=== PATIENT | male | born 1975 | race Caucasian/White ===

== ENCOUNTER → 2021-01-30 08:16 | Outpatient (BNVA) | payer OTHER, SELFPAY | PROVIDERS: PCP Internal Medicine; Visit Provider Anesthesiology | DX: M47.816 Spondylosis without myelopathy or radiculopathy, lumbar region (principal); M17.0 Bilateral primary osteoarthritis of knee; M51.36 Other intervertebral disc degeneration, lumbar region; G89.4 Chronic pain syndrome; Z79.899 Other long term (current) drug therapy | CPT/HCPCS: 99212 ==

== ENCOUNTER 2022-11-10 11:36 | Emergency (ER) | payer OTHER, SELFPAY ==
--- NOTE | ~2022-11-10 | CT_ITS ---
EXAMINATION: CT abdomen pelvis wo IV con CLINICAL INFORMATION: Reason for Exam left flank pain COMPARISON: No prior CT available for comparison. TECHNIQUE: Multidetector volumetric imaging was performed from the superior aspect of the liver through the pubic symphysis , noncontrasted study Sagittal and coronal reformatted images were obtained on the technologist's workstation. This CT examination was performed using dose optimization techniques as appropriate, variously including the following: *Automated exposure control *Adjustment of mA and/or kV according to patient size (this includes techniques or standardized protocols for targeted exams where dose is matched to indication/reason for exam; i.e. extremities or head) *Use of iterative reconstruction technique DLP: 477 mGy-cm FINDINGS: LOWER THORAX: Included lung bases are clear. HEPATOBILIARY: No focal hepatic lesions. No biliary ductal dilatation. GALLBLADDER: Gallbladder unremarkable. SPLEEN: Spleen is normal in size. PANCREAS: No focal mass or ductal dilatation. STOMACH AND GASTROINTESTINAL TRACT: Stomach is grossly unremarkable. There is no bowel distention or thickening. No CT evidence of appendicitis. ADRENALS: No adrenal nodules. KIDNEYS/URETERS: No hydronephrosis, stones or solid mass lesions. URINARY BLADDER: Partially decompressed. PELVIC VISCERA: Unremarkable PERITONEUM: No free air or fluid. LYMPH NODES: No lymphadenopathy. VASCULAR:Abdominal aorta normal in size, no aneurysm found. BONES, ABDOMINAL WALL AND SOFT TISSUES: Age-appropriate changes of the spine and skeletal system, no destructive osteolytic or osteosclerotic bone lesion found CT/CT abdomen pelvis wo IV con IMPRESSION: No CT evidence of acute intra-abdominal process to explain patient's pain symptoms, no kidney stone or hydronephrosis. No obstruction. Free air or fluid.
--- NOTE | 2022-11-10 12:18 | ED_ITS ---
HPI - General Adult General Chief complaint: General Medical <PIPO Ochoa - Last Filed: 11/10/22 12:22> Stated complaint: leg cramp, ? kidney stones <PIPO Ochoa - Last Filed: 11/10/22 12:22> Time Seen by Provider: 11/10/22 13:08 <PIPO Ochoa - Last Filed: 11/10/22 12:22> Source: patient <PIPO Ochoa - Last Filed: 11/10/22 12:22> Mode of arrival: ambulatory <PIPO Ochoa - Last Filed: 11/10/22 12:22> Limitations: no limitations <PIPO Ochoa - Last Filed: 11/10/22 12:22> History of Present Illness HPI narrative: This is a 47-year-old male with history of chronic pain syndrome, lumbar disc degeneration, kidney stones spondylosis of lumbar region without myelopathy or radiculopathy, who noted some pain in his left groin area last night and then woke up today with more severe pain in his left flank/lumbar back which radiates down to his left thigh all the way to his left knee patient has had associated nausea. He denies fever. He notes he is trying to quit smoking and is under lot of stress. He denies any hematuria or dysuria. Denies any numbness or weakness or tingling in his legs. <Joel Malik MD - Last Filed: 11/10/22 16:13> Related Data Home medications: Previous Rx's Medication Instructions Recorded baclofen 10 mg tablet 10 mg PO TID #20 tabs 11/10/22 oseltamivir 75 mg capsule (Tamiflu) 75 mg PO BID 5 days #10 caps 11/10/22 tramadol 50 mg tablet 50 - 100 mg PO Q4H PRN pain #12 11/10/22 tabs <PIPO Ochoa - Last Filed: 11/10/22 12:22> Allergies/adverse reactions: Allergies Allergy/AdvReac Type Severity Reaction Status Date / Time NSAIDS Allergy Unknown unknown Uncoded 01/30/21 08:32 penicillin Allergy Unknown Unknown Uncoded 01/30/21 08:32 <PIPO Ochoa - Last Filed: 11/10/22 12:22> Review of Systems Review of Systems: Yes all other systems are reviewed and are negative <Joel Malik MD - Last Filed: 11/10/22 16:13> Constitutional: Constitutional: Reports as per HPI and Denies fever(s) <Joel Malik MD - Last Filed: 11/10/22 16:13> Eyes: Eyes: Reports as per HPI and Reports no additional eye complaints <Joel Malik MD - Last Filed: 11/10/22 16:13> ENT: Reports system reviewed and no additional complaints, except as documented, Reports as per HPI, Denies nasal congestion, Denies nasal discharge and Denies sore throat <Joel Malik MD - Last Filed: 11/10/22 16:13> Cardiovascular: Cardiovascular: Reports as per HPI, Denies chest pain and Denies dyspnea <Joel Malik MD - Last Filed: 11/10/22 16:13> Respiratory: Respiratory: Reports as per HPI, Denies cough and Denies dyspnea <Joel Malik MD - Last Filed: 11/10/22 16:13> Gastrointestinal: Gastrointestinal: Reports as per HPI, Reports abdominal pain (Left groin), Denies diarrhea and Denies vomiting <Joel Malik MD - Last Filed: 11/10/22 16:13> Genitourinary: Genitourinary: Reports as per HPI, Denies hematuria, Denies dysuria, Reports flank pain and Denies urinary frequency <Joel Malik MD - Last Filed: 11/10/22 16:13> Musculoskeletal: Musculoskeletal: Reports back pain (Radiating to left thigh) and Denies numbness <Joel Malik MD - Last Filed: 11/10/22 16:13> Integumentary/Breasts: Skin/Breast: Reports as per HPI and Denies rash <Joel Malik MD - Last Filed: 11/10/22 16:13> Neurologic: Reports as per HPI, Denies focal weakness and Denies numbness <Joel Malik MD - Last Filed: 11/10/22 16:13> Psychiatric: Psychiatric: Reports no additional psychiatric complaints and Reports as per HPI <Joel Malik MD - Last Filed: 11/10/22 16:13> Endocrine: Endocrine: Reports no additional endocrine complaints and Reports as per HPI <Joel Malik MD - Last Filed: 11/10/22 16:13> Hematologic/Lymphatic: Hematologic/Lymphatic: Reports no additional hematologic/lymphatic complaints, Reports as per HPI and Reports other (No peripheral edema) <Joel Malik MD - Last Filed: 11/10/22 16:13> [facility] Past Medical History Medical History: Medical History (Updated 11/10/22 @ 15:48 by Joel Malik MD) Chronic pain syndrome Disc degeneration, lumbar Osteoarthritis of knees, bilateral Spondylosis of lumbar region without myelopathy or radiculopathy <PIPO Ochoa - Last Filed: 11/10/22 12:22> Social History Social History: Social History Smoked in Last 30 Days: No Use of substances other than those prescribed or required for medical reasons: No Advance Directives: No <PIPO Ochoa - Last Filed: 11/10/22 12:22> Physical Exam ED Vital Signs: Vital Signs - 24 hr 11/10/22 12:19 11/10/22 13:41 11/10/22 14:33 Temperature 100 F 99.1 F Pulse Rate 121 H 98 86 Respiratory Rate 22 H 18 18 Blood Pressure 141/87 H 133/71 116/58 L Pulse Oximetry 97 95 97 Oxygen Delivery Method Room Air Room Air Room Air 11/10/22 15:56 Temperature 99.0 F Pulse Rate 79 Respiratory Rate 16 Blood Pressure 116/68 Pulse Oximetry 96 Oxygen Delivery Method Room Air BMI result Body Mass Index 23.7 <PIPO Ochoa - Last Filed: 11/10/22 12:22> Vital Signs - 24 hr 11/10/22 12:19 11/10/22 13:41 11/10/22 14:33 Temperature 100 F 99.1 F Pulse Rate 121 H 98 86 Respiratory Rate 22 H 18 18 Blood Pressure 141/87 H 133/71 116/58 L Pulse Oximetry 97 95 97 Oxygen Delivery Method Room Air Room Air Room Air 11/10/22 15:56 Temperature 99.0 F Pulse Rate 79 Respiratory Rate 16 Blood Pressure 116/68 Pulse Oximetry 96 Oxygen Delivery Method Room Air BMI result Body Mass Index 23.7 <Joel Malik MD - Last Filed: 11/10/22 16:13> Const Other: Patient is somewhat histrionic appearing <Joel Malik MD - Last Filed: 11/10/22 16:13> General: no acute distress <Joel Malik MD - Last Filed: 11/10/22 16:13> Orientation/consciousness: patient oriented x3 <Joel Malik MD - Last Filed: 11/10/22 16:13> HENMT Head: Yes normal to inspection <Joel Malik MD - Last Filed: 11/10/22 16:13> General nose exam: Normal external nose present <Joel Malik MD - Last Filed: 11/10/22 16:13> Mouth: moist mucous membranes <Joel Malik MD - Last Filed: 11/10/22 16:13> Throat: Yes posterior oropharynx normal, Yes tonsils normal and Yes uvula midline <Joel Malik MD - Last Filed: 11/10/22 16:13> Eyes Eyelids: Yes eyelids normal <Joel Malik MD - Last Filed: 11/10/22 16:13> Conjunctivae: conjunctivae normal <Joel Malik MD - Last Filed: 11/10/22 16:13> Pupils: Equal, round and reactive pupils present <Joel Malik MD - Last Filed: 11/10/22 16:13> Neck Neck: Yes supple <Joel Malik MD - Last Filed: 11/10/22 16:13> Resp Effort & Inspection: normal respiratory effort <Joel Malik MD - Last Filed: 11/10/22 16:13> Auscultation: clear to auscultation bilaterally <Joel Malik MD - Last Filed: 11/10/22 16:13> Cardio Rate: regular rate <Joel Malik MD - Last Filed: 11/10/22 16:13> Rhythm: regular rhythm <Joel Malik MD - Last Filed: 11/10/22 16:13> Heart sounds: S1 normal heart sound present, S2 normal heart sound present, no gallops, no murmurs and no rubs <Joel Malik MD - Last Filed: 11/10/22 16:13> GI Inspection: No distended <Joel Malik MD - Last Filed: 11/10/22 16:13> Palpation (GI): Soft to palpation and nontender <Joel Malik MD - Last Filed: 11/10/22 16:13> Auscultation: normal bowel sounds <Joel Malik MD - Last Filed: 11/10/22 16:13> Back/Spine/Pelvis Other: Tender left lumbar back <Joel Malik MD - Last Filed: 11/10/22 16:13> Skin General skin exam: other (Warm and dry) <Joel Malik MD - Last Filed: 11/10/22 16:13> Neuro General: patient oriented x3 and CN's II-XI intact bilaterally <Joel Malik MD - Last Filed: 11/10/22 16:13> Cranial nerves: Yes Equal, round and reactive pupils present <Joel Malik MD - Last Filed: 11/10/22 16:13> Extrem Other: Normal dorsalis pedis pulses <Joel Malik MD - Last Filed: 11/10/22 16:13> General: Yes no pedal edema <Joel Malik MD - Last Filed: 11/10/22 16:13> Psych Affect: normal affect <Joel Malik MD - Last Filed: 11/10/22 16:13> Attitude: cooperative <Joel Malik MD - Last Filed: 11/10/22 16:13> Course Course Course Narrative: RME performed by Terri Coombs PA-C. Patient is a 47 year old male with a history of kidney stones and chronic lumbar spine pain. Patient states that starting last night, he began to have left sided flank pain and it radiates down his leg. Patient states that he has never had pain in this leg before and he is concerned that it is a blood clot. Lab work included d-dimer ordered as well as a non-con CT abd/pelvis. Patient placed back in the waiting room pending bed availability and results. <PIPO Ochoa - Last Filed: 11/10/22 12:22> Medications Administered Discontinued Medications Generic Name Dose Route Start Last Admin Trade Name Freq PRN Reason Stop Dose Admin Sodium Chloride 1,000 mls @ 999 mls/hr 11/10/22 13:15 11/10/22 14:45 Ns IV 11/10/22 14:15 Infused .Q1H1M ADALID Infusion Ketorolac Tromethamine 15 mg 11/10/22 13:13 11/10/22 13:38 Ketorolac Tromethamine 15 Mg/Ml Vial IVPUSH 11/10/22 13:14 15 mg ONCE ONE Administration <PIPO Ochoa - Last Filed: 11/10/22 12:22> Medications Administered Discontinued Medications Generic Name Dose Route Start Last Admin Trade Name Freq PRN Reason Stop Dose Admin Sodium Chloride 1,000 mls @ 999 mls/hr 11/10/22 13:15 11/10/22 14:45 Ns IV 11/10/22 14:15 Infused .Q1H1M ADALID Infusion Ketorolac Tromethamine 15 mg 11/10/22 13:13 11/10/22 13:38 Ketorolac Tromethamine 15 Mg/Ml Vial IVPUSH 11/10/22 13:14 15 mg ONCE ONE Administration <Joel Malik MD - Last Filed: 11/10/22 16:13> Medical Decision Making Medical Decision Making MDM Narrative: 47-year-old male with a history of chronic pain syndrome, complained of acute left back pain radiating down to his left leg. Patient had a low-grade fever and was tachycardic initially. Patient has tested positive for influenza a, which is likely explanation for his abnormal vital signs. Patient does have a history of kidney stones however today there is no evidence of a kidney stone either by CT or urinalysis. No evidence of UTI or pyelonephritis. No objective findings to explain the patient's pain. Patient was treated with Toradol 15 mg IV, normal saline 1 L IV. The patient will be treated with baclofen and tramadol and limited quantity for his back pain. <Joel Malik MD - Last Filed: 11/10/22 16:13> Differential Diagnosis Differential Diagnoses: The differential diagnosis associated with the presentation includes <Joel Malik MD - Last Filed: 11/10/22 16:13> Renal colic, disc herniation, lumbar radiculopathy, abdominal aortic aneurysm, diverticulitis, bowel perforation. <Joel Malik MD - Last Filed: 11/10/22 16:13> Lab Data [facility] Lab Attestation statement: I reviewed the patient's lab results. <Joel Malik MD - Last Filed: 11/10/22 16:13> Result Diagrams: : 11/10/22 12:31 11/10/22 12:31 <PIPO Ochoa - Last Filed: 11/10/22 12:22> Labs: Lab Results 11/10/22 11/10/22 11/10/22 Range/Units 12:31 12:31 12:31 WBC 8.3 (4.8-10.8) X10*3/uL RBC 4.59 L (4.60-5.80) X10*6/uL Hgb 13.6 L (14.0-18.0) g/dl Hct 39.6 L (42.0-52.0) % MCV 86.3 (80.0-98.0) fL MCH 29.6 (27.0-33.0) pg MCHC 34.3 (31.0-36.0) g/dl RDW 13.8 (11.0-16.0) % Plt Count 309 (160-400) X10*3/uL MPV 8.4 L (9.4-12.4) fL Immature Gran % (Auto) 0.4 (0.0-0.4) % Neut % (Auto) 80.4 H (45-73) % Lymph % (Auto) 6.5 L (20-40) % [place] % (Auto) 11.7 H (2-11) % Eos % (Auto) 0.4 (0-4) % Baso % (Auto) 0.6 (0-2) % Lymph # (Auto) 0.5 L (1.2-4.9) X10*3/uL [place] # (Auto) 1.0 (0.1-1.2) X10*3/uL Eos # (Auto) 0.0 (0.0-0.4) X10*3/uL Baso # (Auto) 0.1 (0.0-0.2) X10*3/uL Abs Immat Gran (auto) 0.03 (0.00-0.03) X10*3/uL Absolute Neuts (auto) 6.7 (2.0-8.3) x10*3/uL Absolute Nucleated RBC 0.000 (0.0-0.012) X10*3/uL Nucleated RBC % (auto) 0.0 (0.0-0.2) /100WBC D-Dimer High Sensitivty 174 NG/ML Sodium 136 (135-145) mmol/L Potassium 4.2 (3.3-5.1) mmol/L Chloride 103 (96-108) mmol/L Carbon Dioxide 24 (22-29) mmol/L Anion Gap 13 (12-20) BUN 11 (9-16) mg/dL Creatinine 1.08 (0.5-1.4) mg/dL Estim Creat Clear Calc 97.6 Estimated GFR > 60 Random Glucose 116 H (60-115) mg/dL Lactic Acid (0.5-2.0) mmol/L Calcium 9.6 (8.4-10.2) mg/dL Magnesium 2.0 (1.6-2.6) mg/dL Total Bilirubin 0.4 (0.0-1.0) mg/dL AST 15 (5-37) U/L ALT 15 (0-40) U/L Alkaline Phosphatase 70 (39-117) U/L Total Protein 7.3 (6.5-8.0) g/dL Albumin 4.7 (3.5-5.0) g/dL Urine Color Urine Appearance Urine pH (5.0-9.0) Ur Specific [place] (1.005-1.025) Urine Protein (Neg-Trace) mg/dL Urine Glucose (UA) (Negative) mg/dL Urine Ketones (Negative) mg/dL Urine Blood (Negative) Urine Nitrite (Negative) Ur Leukocyte Esterase (Negative) Influenza Type A (PCR) (Negative) Influenza Type B (PCR) (Negative) RSV RNA Qual (PCR) (Negative) SARS-CoV-2 RNA (RT-PCR) (Negative) 11/10/22 11/10/22 11/10/22 Range/Units 12:31 12: 15:59 WBC (4.8-10.8) X10*3/uL RBC (4.60-5.80) X10*6/uL Hgb (14.0-18.0) g/dl Hct (42.0-52.0) % MCV (80.0-98.0) fL MCH (27.0-33.0) pg MCHC (31.0-36.0) g/dl RDW (11.0-16.0) % Plt Count (160-400) X10*3/uL MPV (9.4-12.4) fL Immature Gran % (Auto) (0.0-0.4) % Neut % (Auto) (45-73) % Lymph % (Auto) (20-40) % [place] % (Auto) (2-11) % Eos % (Auto) (0-4) % Baso % (Auto) (0-2) % Lymph # (Auto) (1.2-4.9) X10*3/uL [place] # (Auto) (0.1-1.2) X10*3/uL Eos # (Auto) (0.0-0.4) X10*3/uL Baso # (Auto) (0.0-0.2) X10*3/uL Abs Immat Gran (auto) (0.00-0.03) X10*3/uL Absolute Neuts (auto) (2.0-8.3) x10*3/uL Absolute Nucleated RBC (0.0-0.012) X10*3/uL Nucleated RBC % (auto) (0.0-0.2) /100WBC D-Dimer High Sensitivty NG/ML Sodium (135-145) mmol/L Potassium (3.3-5.1) mmol/L Chloride (96-108) mmol/L Carbon Dioxide (22-29) mmol/L Anion Gap (12-20) BUN (9-16) mg/dL Creatinine (0.5-1.4) mg/dL Estim Creat Clear Calc Estimated GFR Random Glucose (60-115) mg/dL Lactic Acid 1.6 (0.5-2.0) mmol/L Calcium (8.4-10.2) mg/dL Magnesium (1.6-2.6) mg/dL Total Bilirubin (0.0-1.0) mg/dL AST (5-37) U/L ALT (0-40) U/L Alkaline Phosphatase (39-117) U/L Total Protein (6.5-8.0) g/dL Albumin (3.5-5.0) g/dL Urine Color Yellow Urine Appearance Cloudy Urine pH 8.0 (5.0-9.0) Ur Specific [place] 1.020 (1.005-1.025) Urine Protein Trace (Neg-Trace) mg/dL Urine Glucose (UA) Negative (Negative) mg/dL Urine Ketones Negative (Negative) mg/dL Urine Blood Negative (Negative) Urine Nitrite Negative (Negative) Ur Leukocyte Esterase Negative (Negative) Influenza Type A (PCR) POSITIVE A (Negative) Influenza Type B (PCR) NEGATIVE (Negative) RSV RNA Qual (PCR) NEGATIVE (Negative) SARS-CoV-2 RNA (RT-PCR) NEGATIVE (Negative) <Terri Coombs, PA - Last Filed: 11/10/22 12:22> Lab Results 11/10/22 11/10/22 11/10/22 Range/Units 12:31 12: 12:31 WBC 8.3 (4.8-10.8) X10*3/uL RBC 4.59 L (4.60-5.80) X10*6/uL Hgb 13.6 L (14.0-18.0) g/dl Hct 39.6 L (42.0-52.0) % MCV 86.3 (80.0-98.0) fL MCH 29.6 (27.0-33.0) pg MCHC 34.3 (31.0-36.0) g/dl RDW 13.8 (11.0-16.0) % Plt Count 309 (160-400) X10*3/uL MPV 8.4 L (9.4-12.4) fL Immature Gran % (Auto) 0.4 (0.0-0.4) % Neut % (Auto) 80.4 H (45-73) % Lymph % (Auto) 6.5 L (20-40) % [place] % (Auto) 11.7 H (2-11) % Eos % (Auto) 0.4 (0-4) % Baso % (Auto) 0.6 (0-2) % Lymph # (Auto) 0.5 L (1.2-4.9) X10*3/uL [place] # (Auto) 1.0 (0.1-1.2) X10*3/uL Eos # (Auto) 0.0 (0.0-0.4) X10*3/uL Baso # (Auto) 0.1 (0.0-0.2) X10*3/uL Abs Immat Gran (auto) 0.03 (0.00-0.03) X10*3/uL Absolute Neuts (auto) 6.7 (2.0-8.3) x10*3/uL Absolute Nucleated RBC 0.000 (0.0-0.012) X10*3/uL Nucleated RBC % (auto) 0.0 (0.0-0.2) /100WBC D-Dimer High Sensitivty 174 NG/ML Sodium 136 (135-145) mmol/L Potassium 4.2 (3.3-5.1) mmol/L Chloride 103 (96-108) mmol/L Carbon Dioxide 24 (22-29) mmol/L Anion Gap 13 (12-20) BUN 11 (9-16) mg/dL Creatinine 1.08 (0.5-1.4) mg/dL Estim Creat Clear Calc 97.6 Estimated GFR > 60 Random Glucose 116 H (60-115) mg/dL Lactic Acid (0.5-2.0) mmol/L Calcium 9.6 (8.4-10.2) mg/dL Magnesium 2.0 (1.6-2.6) mg/dL Total Bilirubin 0.4 (0.0-1.0) mg/dL AST 15 (5-37) U/L ALT 15 (0-40) U/L Alkaline Phosphatase 70 (39-117) U/L Total Protein 7.3 (6.5-8.0) g/dL Albumin 4.7 (3.5-5.0) g/dL Urine Color Urine Appearance Urine pH (5.0-9.0) Ur Specific [place] (1.005-1.025) Urine Protein (Neg-Trace) mg/dL Urine Glucose (UA) (Negative) mg/dL Urine Ketones (Negative) mg/dL Urine Blood (Negative) Urine Nitrite (Negative) Ur Leukocyte Esterase (Negative) Influenza Type A (PCR) (Negative) Influenza Type B (PCR) (Negative) RSV RNA Qual (PCR) (Negative) SARS-CoV-2 RNA (RT-PCR) (Negative) 11/10/22 11/10/22 11/10/22 Range/Units 12:31 12:31 15:59 WBC (4.8-10.8) X10*3/uL RBC (4.60-5.80) X10*6/uL Hgb (14.0-18.0) g/dl Hct (42.0-52.0) % MCV (80.0-98.0) fL MCH (27.0-33.0) pg MCHC (31.0-36.0) g/dl RDW (11.0-16.0) % Plt Count (160-400) X10*3/uL MPV (9.4-12.4) fL Immature Gran % (Auto) (0.0-0.4) % Neut % (Auto) (45-73) % Lymph % (Auto) (20-40) % [place] % (Auto) (2-11) % Eos % (Auto) (0-4) % Baso % (Auto) (0-2) % Lymph # (Auto) (1.2-4.9) X10*3/uL [place] # (Auto) (0.1-1.2) X10*3/uL Eos # (Auto) (0.0-0.4) X10*3/uL Baso # (Auto) (0.0-0.2) X10*3/uL Abs Immat Gran (auto) (0.00-0.03) X10*3/uL Absolute Neuts (auto) (2.0-8.3) x10*3/uL Absolute Nucleated RBC (0.0-0.012) X10*3/uL Nucleated RBC % (auto) (0.0-0.2) /100WBC D-Dimer High Sensitivty NG/ML Sodium (135-145) mmol/L Potassium (3.3-5.1) mmol/L Chloride (96-108) mmol/L Carbon Dioxide (22-29) mmol/L Anion Gap (12-20) BUN (9-16) mg/dL Creatinine (0.5-1.4) mg/dL Estim Creat Clear Calc Estimated GFR Random Glucose (60-115) mg/dL Lactic Acid 1.6 (0.5-2.0) mmol/L Calcium (8.4-10.2) mg/dL Magnesium (1.6-2.6) mg/dL Total Bilirubin (0.0-1.0) mg/dL AST (5-37) U/L ALT (0-40) U/L Alkaline Phosphatase (39-117) U/L Total Protein (6.5-8.0) g/dL Albumin (3.5-5.0) g/dL Urine Color Yellow Urine Appearance Cloudy Urine pH 8.0 (5.0-9.0) Ur Specific [place] 1.020 (1.005-1.025) Urine Protein Trace (Neg-Trace) mg/dL Urine Glucose (UA) Negative (Negative) mg/dL Urine Ketones Negative (Negative) mg/dL Urine Blood Negative (Negative) Urine Nitrite Negative (Negative) Ur Leukocyte Esterase Negative (Negative) Influenza Type A (PCR) POSITIVE A (Negative) Influenza Type B (PCR) NEGATIVE (Negative) RSV RNA Qual (PCR) NEGATIVE (Negative) SARS-CoV-2 RNA (RT-PCR) NEGATIVE (Negative) <Joel Malik MD - Last Filed: 11/10/22 16:13> Radiology Impression Discussion of test interpretation with radiology: I have reviewed the radiologist's reading. <Joel Malik MD - Last Filed: 11/10/22 16:13> Radiologist Impression: CT abdomen pelvis IMPRESSION: No CT evidence of acute intra-abdominal process to explain patient's pain symptoms, no kidney stone or hydronephrosis. No obstruction. Free air or fluid. <Joel Malik MD - Last Filed: 11/10/22 16:13> Prescription Management I considered prescription management with: Pain Medication <Joel Malik MD - Last Filed: 11/10/22 16:13> Discharge Plan Discharge Clinical Impression: Influenza A, Acute back pain <PIPO Ochoa - Last Filed: 11/10/22 12:22> Patient Disposition: Home, Self-Care <PIPO Ochoa - Last Filed: 11/10/22 12:22> Instructions: Influenza (ED), Acute Low Back Pain (ED) <PIPO Ochoa - Last Filed: 11/10/22 12:22> Additional Instructions: Drink plenty of fluids. Use the baclofen and tramadol as prescribed for your back pain. Use the Tamiflu for your influenza. Follow-up with primary care physician. Return for any new or worsened symptoms <PIPO Ochoa - Last Filed: 11/10/22 12:22> Prescriptions: New oseltamivir [Tamiflu] 75 mg capsule 75 mg PO BID 5 Days Qty: 10 0RF baclofen 10 mg tablet 10 mg PO TID Qty: 20 0RF tramadol 50 mg tablet 50 - 100 mg PO Q4H PRN (Reason: pain) Qty: 12 0RF <PIPO Ochoa - Last Filed: 11/10/22 12:22>
[2022-11-10 12:19] VITALS: BP 141/87; PULSE 121; RESP 22; TEMP 37.7; O2SAT 97; BMI 23.7
[2022-11-10 12:39] LABS: MANUAL DIFF FLAG NO
[2022-11-10 12:41] LABS: Basophils Absolute Auto 0.1 X10*3/uL (0.0-0.2); Basophils Percent Auto 0.6 % (0-2); Eosinophils Percent Auto 0.4 % (0-4); Hematocrit 39.6 % (42.0-52.0); Hemoglobin 13.6 g/dl (14.0-18.0); Imm Gran Abs Auto 0.03 X10*3/uL (0.00-0.03); Imm Gran Pct Auto 0.4 % (0.0-0.4); Lymphocytes Absolute Auto 0.5 X10*3/uL (1.2-4.9); Lymphocytes Percent Auto 6.5 % (20-40); Mean Corpuscular HGB Conc 34.3 g/dl (31.0-36.0); Mean Corpuscular Hemoglobin 29.6 pg (27.0-33.0); Mean Corpuscular Volume 86.3 fL (80.0-98.0); Mean Platelet Volume 8.4 fL (9.4-12.4); Monocytes Percent Auto 11.7 % (2-11); Neutrophils Absolute Auto 6.7 x10*3/uL (2.0-8.3); Neutrophils Percent Auto 80.4 % (45-73); Platelet Count 309 X10*3/uL (160-400); Red Blood Count 4.59 X10*6/uL (4.60-5.80); Red Cell Distribution Width 13.8 % (11.0-16.0); White Blood Count 8.3 X10*3/uL (4.8-10.8)
[2022-11-10 12:49] LABS: Lactic Acid 1.6 mmol/L (0.5-2.0)
[2022-11-10 12:50] LABS: D Dimer High Sensitivity 174 NG/ML
[2022-11-10 12:54] LABS: Alanine Aminotransferase 15 U/L (0-40); Albumin Level 4.7 g/dL (3.5-5.0); Alkaline Phosphatase 70 U/L (39-117); Anion Gap 13 (12-20); Aspartate Amino Transferase 15 U/L (5-37); Bilirubin Total 0.4 mg/dL (0.0-1.0); Blood Urea Nitrogen 11 mg/dL (9-16); Calcium 9.6 mg/dL (8.4-10.2); Carbon Dioxide 24 mmol/L (22-29); Chloride 103 mmol/L (96-108); Creatinine Clr Calc Pharmacy 97.6; Estimated Glomerular Filt Rate > 60; Glucose Random 116 mg/dL (60-115); Potassium 4.2 mmol/L (3.3-5.1); Sodium 136 mmol/L (135-145); Total Protein 7.3 g/dL (6.5-8.0)
[2022-11-10 13:28] LABS: Influenza A PCR POSITIVE (Negative); Influenza B PCR NEGATIVE (Negative); Resp Syncy Virus RNA Qual PCR NEGATIVE (Negative); SARS COV2 PCR INHOUSE NEGATIVE (Negative)
[2022-11-10] MEDS: 0.9 % Sodium Chloride 1,000 ML 999 ML IV (13:38)
[2022-11-10] MEDS: Ketorolac Tromethamine 15 MG/ML VIAL IVPUSH (13:38)
[2022-11-10 13:41] VITALS: BP 133/71; PULSE 98; RESP 18; O2SAT 95
[2022-11-10 14:33] VITALS: BP 116/58; PULSE 86; RESP 18; TEMP 37.3; O2SAT 97
[2022-11-10 15:56] VITALS: BP 116/68; PULSE 79; RESP 16; TEMP 37.2; O2SAT 96
[2022-11-10 16:06] LABS: Appearance Urine Cloudy; Color Urine Yellow; Glucose Urine UA Negative (Negative); Leukocyte Esterase Urine Negative (Negative); Nitrite Urine Negative (Negative); Urine Blood Negative (Negative); Urine Ketones Negative (Negative); Urine Protein Trace mg/dL (Neg-Trace)
== END 2022-11-10 16:47 | disposition home or self-care (01) ==
PROVIDERS: Physician Assistant Medical; Emergency Provider Emergency Medicine; PCP Internal Medicine
DX: J11.1 Influenza due to unidentified influenza virus with other respiratory manifestations (principal); M54.50 Low back pain, unspecified; Z20.822 Contact with and (suspected) exposure to COVID-19
CPT/HCPCS: 0241U; 36415; 74176; 80053; 81003; 83605; 83735; 85025; 85379; 87040; 96361; 96374; 99284; J1885

== ENCOUNTER 2023-01-14 16:23 | Emergency (ER) | payer OTHER, SELFPAY ==
[2023-01-14 16:55] VITALS: BP 158/99; PULSE 113; RESP 20; TEMP 36.5; O2SAT 98; BMI 24.4
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
[2023-01-14 18:24] VITALS: BP 129/94; PULSE 92; RESP 18; TEMP 37.1; O2SAT 97
[2023-01-14 18:30] LABS: MANUAL DIFF FLAG NO
[2023-01-14 18:36] LABS: Basophils Absolute Auto 0.1 X10*3/uL (0.0-0.2); Basophils Percent Auto 0.4 % (0-2); Eosinophils Percent Auto 0.3 % (0-4); Hemoglobin 15.2 g/dl (14.0-18.0); Imm Gran Abs Auto 0.11 X10*3/uL (0.00-0.03); Imm Gran Pct Auto 0.9 % (0.0-0.4); Lymphocytes Absolute Auto 3.1 X10*3/uL (1.2-4.9); Lymphocytes Percent Auto 26.5 % (20-40); Mean Corpuscular HGB Conc 34.5 g/dl (31.0-36.0); Mean Corpuscular Hemoglobin 30.1 pg (27.0-33.0); Mean Corpuscular Volume 87.1 fL (80.0-98.0); Mean Platelet Volume 8.7 fL (9.4-12.4); Monocytes Absolute Auto 0.7 X10*3/uL (0.1-1.2); Monocytes Percent Auto 5.6 % (2-11); Neutrophils Absolute Auto 7.8 x10*3/uL (2.0-8.3); Neutrophils Percent Auto 66.3 % (45-73); Platelet Count 302 X10*3/uL (160-400); Red Blood Count 5.05 X10*6/uL (4.60-5.80); Red Cell Distribution Width 14.7 % (11.0-16.0); White Blood Count 11.8 X10*3/uL (4.8-10.8)
[2023-01-14 18:50] LABS: Alanine Aminotransferase 15 U/L (0-40); Albumin Level 4.7 g/dL (3.5-5.0); Alkaline Phosphatase 71 U/L (39-117); Anion Gap 15 (12-20); Aspartate Amino Transferase 16 U/L (5-37); Bilirubin Direct < 0.2 mg/dL (0.0-0.5); Bilirubin Total 0.5 mg/dL (0.0-1.0); Blood Urea Nitrogen 11 mg/dL (9-16); Carbon Dioxide 22 mmol/L (22-29); Chloride 109 mmol/L (96-108); Creatinine Clr Calc Pharmacy 106.4; Estimated Glomerular Filt Rate > 60; Ethanol < 10 mg/dL; Glucose Random 102 mg/dL (60-115); Magnesium 2.2 mg/dL (1.6-2.6); Potassium 4.1 mmol/L (3.3-5.1); Sodium 142 mmol/L (135-145); Total Protein 7.3 g/dL (6.5-8.0)
[2023-01-14 19:18] LABS: Appearance Urine Clear; Color Urine Yellow; Glucose Urine UA Negative (Negative); Leukocyte Esterase Urine Negative (Negative); Nitrite Urine Negative (Negative); PH 5.5 (5.0-9.0); Specific Gravity - Urine 1.025 (1.005-1.025); Urine Blood Negative (Negative); Urine Ketones Trace mg/dL (Negative); Urine Protein Trace mg/dL (Neg-Trace)
[2023-01-14 19:30] LABS: Amphetamine Screen Urine Not Detected (Not Detect); Barbiturates, Urine Not Detected (Not Detect); Benzodiazepines Screen Urine Not Detected (Not Detect); Cannabinoid Screen Urine POSITIVE (Not Detect); Cocaine Screen Urine Not Detected (Not Detect); Fentanyl, urine POSITIVE (Not Detect); Opiate Screen Urine Not Detected (Not Detect); Phencyclidine Screen Urine Not Detected (Not Detect)
--- NOTE | 2023-01-14 19:40 | PC.NURSE ---
Assumed care for pt. Pt aox4 resting at the bedside reporting LBP and bilateral knee pain, 07/21. +SI, denies HI. VSS. Pt aware of plan of care. Will continue to monitor.
--- NOTE | 2023-01-14 19:58 | PHA.MEDREC ---
Pharmacy Consult ? Medication Reconciliation Pharmacy has completed the medication reconciliation. spoke with pt
[2023-01-14 20:09] LABS: COVID-19 Test Negative (Negative); IDNOW Serial# 16C4AD1C
[2023-01-14] MEDS: Cyclobenzaprine HCl 10 MG TABLET PO (21:54)
[2023-01-14] MEDS: Mirtazapine 7.5 MG TABLET PO (21:55)
--- NOTE | 2023-01-14 21:58 | PC.NURSE ---
Pt reports LBP, 06/20. Medicated as ordered. Tolerated well. 1:1 sitter at bedside. Will continue to monitor.
[2023-01-14 23:27] VITALS: BP 129/74; PULSE 85; RESP 18; TEMP 36.6; O2SAT 97
[2023-01-15] MEDS: oxyCODONE HCl Immed Release 5 MG TABLET PO ×2 (03:56→08:27)
[2023-01-15 06:11] VITALS: BP 132/81; PULSE 76; RESP 19; TEMP 36.6; O2SAT 97
--- NOTE | 2023-01-15 06:35 | PC.NURSE ---
Pt asleep at the bedside in no apparent distress. Breaths are even, regular, and unlabored with equal chest rises. Will continue to monitor.
[2023-01-15 07:13] VITALS: BP 120/79; PULSE 90; RESP 18; TEMP 37.1; O2SAT 99
[2023-01-15] MEDS: Cyclobenzaprine HCl 10 MG TABLET PO (08:27)
[2023-01-15 10:39] VITALS: BP 129/90; PULSE 95; RESP 20; TEMP 36.9
--- NOTE | 2023-01-15 10:45 | PC.NURSE ---
patient a&ox3, vss, pt currently denying si/hi, sitter at bedside, c/o back and bilateral knee pain, call costa within reach, will continue to monitor
--- NOTE | 2023-01-15 13:39 | MHC.CARE ---
Pt referred to [facility] and [facility]
--- NOTE | 2023-01-16 16:17 | MHC.CARE ---
CARE Team called pt to check in. Pt was pleasant and talked to this short story writer for about 15 minutes about his recent stressors and medical complaints that have exasperated his mental health. Pt expressed that he called [facility] and they advised him to go to [address] [place] [address] walk in clinic so he is not sure if he is still on the waiting list. Pt also inquired about PHP and when they will be calling him, so I will reach out to [facility]. Pt was able to express that he is feeling much better and trying to take it day by day. States that he has never experienced anxiety before and feels that he has been anxious lately. Pt expresses that he found his father in August, and [place] but his oldest daughter just had a baby and it is their first grandchild, in addition has had some medical issues and pain plus not sleeping/eating. I informed pt I will reach out to [facility], he is looking forward to [facility] and states it really helped coming to the ED the other day because he was about to let everything out .
== END 2023-01-15 11:11 | disposition home or self-care (01) ==
PROVIDERS: Physician Assistant; Emergency Provider Emergency Medicine; PCP Internal Medicine
DX: R45.851 Suicidal ideations (principal); F32.A Depression, unspecified; Z20.822 Contact with and (suspected) exposure to COVID-19; F43.10 Post-traumatic stress disorder, unspecified; G89.4 Chronic pain syndrome; Z72.89 Other problems related to lifestyle; Z63.5 Disruption of family by separation and divorce; Z63.4 Disappearance and death of family member; Z63.6 Dependent relative needing care at home; Z79.899 Other long term (current) drug therapy
CPT/HCPCS: 80048; 80076; 80307; 81003; 82077; 83735; 85025; 87635; 99285; S9485

== ENCOUNTER 2023-08-24 10:46 | Emergency (ER) | payer OTHER, SELFPAY ==
--- NOTE | ~2023-08-24 | CT_ITS ---
EXAMINATION: CT ABDOMEN AND PELVIS WITHOUT CONTRAST CLINICAL INFORMATION: Abdominal pain and bloating. COMPARISON: CT abdomen and pelvis without IV contrast 11/10/2022. TECHNIQUE: Multidetector volumetric imaging was performed from the superior aspect of the liver through the pubic symphysis. Sagittal and coronal reformatted images were obtained on the technologist's workstation. This CT examination was performed using dose optimization techniques as appropriate, variously including the following: *Automated exposure control *Adjustment of mA and/or kV according to patient size (this includes techniques or standardized protocols for targeted exams where dose is matched to indication/reason for exam; i.e. extremities or head) *Use of iterative reconstruction technique DLP: 574 mGy-cm FINDINGS: LUNG BASES: There is a right lobe platelike atelectasis with mild emphysematous changes in both lung bases. Heart size is normal. LIVER, GALLBLADDER, AND BILIARY TREE: The liver is normal in size, shape, and attenuation. No focal hepatic lesion or biliary ductal dilatation is present. The gallbladder is unremarkable with no evidence of radiopaque gallstones, gallbladder wall thickening, or obvious pericholecystic inflammatory changes. PANCREAS: Unremarkable. SPLEEN: Unremarkable. ADRENAL GLANDS: Unremarkable. KIDNEYS AND URETERS: The kidneys are normal in size, shape, and attenuation. No hydronephrosis, hydroureter, or calculi seen. No perinephric stranding. BLADDER: Unremarkable. GASTROINTESTINAL TRACT: There is scattered stool, diverticuli and gas seen throughout the colon without any significant distention. The small bowel loops are normal caliber. Appendix is normal caliber. No inflammatory process, free air or free fluid seen. ABDOMINAL WALL: No significant hernia is appreciated. LYMPH NODES: Normal. VASCULAR: Unremarkable. PELVIC VISCERA: The prostate gland is mildly enlarged with central gland calcification. No abnormal pelvic lymph nodes. No inguinal hernia. Is OSSEOUS STRUCTURES: Unremarkable. CT/CT abdomen pelvis wo IV con IMPRESSION: 1. No acute intra-abdominal process seen. 2. Scattered colonic diverticulosis without diverticulitis. Mild constipation. Fleischner guidelines were followed.
[2023-08-24 11:11] VITALS: BP 127/111; PULSE 91; RESP 20; TEMP 36.9; O2SAT 98; BMI 25.9
[2023-08-24 11:50] LABS: MANUAL DIFF FLAG NO
[2023-08-24 11:53] LABS: Basophils Absolute Auto 0.1 X10*3/uL (0.0-0.2); Basophils Percent Auto 0.3 % (0-2); Eosinophils Percent Auto 0.2 % (0-4); Hemoglobin 14.8 g/dl (14.0-18.0); Imm Gran Abs Auto 0.05 X10*3/uL (0.00-0.03); Imm Gran Pct Auto 0.3 % (0.0-0.4); Lymphocytes Absolute Auto 4.1 X10*3/uL (1.2-4.9); Lymphocytes Percent Auto 27.6 % (20-40); Mean Corpuscular HGB Conc 34.4 g/dl (31.0-36.0); Mean Corpuscular Hemoglobin 29.6 pg (27.0-33.0); Mean Platelet Volume 8.9 fL (9.4-12.4); Monocytes Absolute Auto 0.9 X10*3/uL (0.1-1.2); Monocytes Percent Auto 6.3 % (2-11); Neutrophils Absolute Auto 9.6 x10*3/uL (2.0-8.3); Neutrophils Percent Auto 65.3 % (45-73); Platelet Count 343 X10*3/uL (160-400); Red Cell Distribution Width 13.1 % (11.0-16.0); White Blood Count 14.7 X10*3/uL (4.8-10.8)
[2023-08-24 12:10] LABS: Alanine Aminotransferase 20 U/L (0-40); Albumin Level 4.8 g/dL (3.5-5.0); Alkaline Phosphatase 69 U/L (39-117); Anion Gap 14 (12-20); Aspartate Amino Transferase 20 U/L (5-37); Bilirubin Total 0.6 mg/dL (0.0-1.0); Blood Urea Nitrogen 19 mg/dL (9-16); Calcium 10.5 mg/dL (8.4-10.2); Carbon Dioxide 23 mmol/L (22-29); Chloride 104 mmol/L (96-108); Creatinine Clr Calc Pharmacy 84.8; Estimated Glomerular Filt Rate > 60; Glucose Random 118 mg/dL (60-115); Lipase 30 U/L (8-78); Magnesium 2.3 mg/dL (1.6-2.6); Potassium 3.9 mmol/L (3.3-5.1); Sodium 137 mmol/L (135-145); Total Protein 8.1 g/dL (6.5-8.0)
--- NOTE | 2023-08-24 12:11 | ED.GENADULT ---
HPI - General Adult General Chief complaint: General Medical Stated complaint: abd blotting vomiting Time Seen by Provider: 08/24/23 11:59 Source: patient Mode of arrival: ambulatory Limitations: no limitations History of Present Illness HPI narrative: 48-year-old male otherwise healthy presented with 2 months of abdominal discomfort and feeling distended and bloated. Symptoms is associated with nausea, vomiting. No fever, no chills, pain is mostly localized to the upper abdomen. Has a normal bowel movement this morning and passing flatus okay. No dysuria, no frequency urination, no hematuria, no intra-abdominal surgery. patient's symptoms started after patient had COVID infection in May ever since patient been having generalized weakness, fatigue and the above symptoms Related Data Home Medications Medication Instructions Recorded Confirmed cetirizine 10 mg tablet 10 mg PO DAILY PRN Allergy Symptoms 01/14/23 01/14/23 methocarbamol 750 mg tablet 1 tab PO BID 01/14/23 01/14/23 mirtazapine 7.5 mg tablet 1 tab PO BEDTIME 01/14/23 01/14/23 oxycodone-acetaminophen 5 mg-325 1 tab PO QID PRN Pain, Moderate 01/14/23 01/14/23 mg tablet sumatriptan succinate 50 mg tablet 50 mg PO DAILY PRN Migraine 01/14/23 01/14/23 Headache Previous Rx's Medication Instructions Recorded omeprazole 40 mg capsule,delayed 40 mg PO DAILY #20 caps 08/24/23 release Allergies Allergy/AdvReac Type Severity Reaction Status Date / Time NSAIDS Allergy Unknown unknown Uncoded 01/30/21 08:32 penicillin Allergy Unknown Unknown Uncoded 01/30/21 08:32 Review of Systems Review of Systems: all other systems are reviewed and are negative Constitutional: Reports as per HPI and Reports no additional constitutional complaints Eyes: Reports as per HPI and Reports no additional eye complaints Reports system reviewed and no additional complaints, except as documented Cardiovascular: Reports as per HPI and Reports no additional cardiovascular complaints Respiratory: Reports as per HPI and Reports no additional respiratory complaints Gastrointestinal: Reports as per HPI and Reports no additional gastrointestinal complaints Genitourinary: Reports no additional female genitourinary complaints Musculoskeletal: Reports no additional musculoskeletal complaints Skin/Breast: Reports system reviewed and no additional complaints, except as docu Psychiatric: Reports no additional psychiatric complaints Endocrine: Reports no additional endocrine complaints Hematologic/Lymphatic: Reports no additional hematologic/lymphatic complaints Allergic/Immunologic: Reports no additional allergic/immunologic complaints Reports system reviewed and no additional complaints, except as documented and Reports Abnormal speech present [facility] Past Medical History Medical History Chronic pain syndrome Disc degeneration, lumbar Spondylosis of lumbar region without myelopathy or radiculopathy Osteoarthritis of knees, bilateral Social History Social History Substance Use Type: Marijuana Advance Directives: No Advance Directives Information Provided: No Physical Exam ED Vital Signs: Vital Signs - 24 hr 08/24/23 11:11 08/24/23 13:07 Temperature 98.4 F 98.8 F Pulse Rate 91 75 Respiratory Rate 20 16 Blood Pressure 127/111 H 140/91 H Pulse Oximetry 98 97 Oxygen Delivery Method Room Air Room Air BMI result Body Mass Index 25.9 Vital signs have been reviewed and appear to be correct. Blood pressure elevated. Heart rate normal. Respiratory rate normal. Temperature normal. Oxygen saturation normal. Appearance: Alert. Oriented X3. No acute distress. Head: Normal external exam. Normocephalic. Atraumatic. No Monsalve signs noted. No raccoon eyes noted Eyes: PERRLA. EOMI. Conjunctiva and sclera normal. Eyelids normal. ENT: TM's Normal. Pharynx normal. Uvula midline. Moist mucous membranes. No trismus noted. No drooling noted. No muffled voice noted. Neck: Normal inspection. Neck supple. FROM. No adenopathy. Thyroid Normal. No meningeal signs. No neck mass noted. CVS: Normal heart rate and rhythm. Heart sound normal. No murmurs noted. Pulses normal throughout. Respiratory: No respiratory distress. Painless inspiration. Breath sounds normal. No wheezes/rales/rhonchi noted. Chest nontender. No accessory muscle usage noted or decreased air movement noted. Abdomen: Soft and nontender. Bowel sounds normal in all 4 quadrants. No distention noted. No organomegaly noted. No visible injury noted. Back: No CVA tenderness. Full range of motion noted. Skin: Skin warm and dry. Normal skin color. Normal skin turgor. No rashes/lesions/lacerations noted. Extremities: No lower extremity edema. Extremities exhibit normal range of motion. Extremities nontender. Neuro: Oriented X 3. Cranial nerve exam: II-XII are grossly intact No motor deficit. No sensory deficit. Reflexes normal. Course Reevaluation(s) Reevaluation #1: 48-year-old male otherwise healthy male had a COVID infection few months ago left him was abdominal discomfort for 2 months. labs is unremarkable except for leukocytosis, CT abdomen and pelvis is revealing no acute pathology. Patient was instructed to follow-up with PCP and get a GI referral for possible colonoscopy. Time: 15:07 Medical Decision Making Differential Diagnosis Differential Diagnoses: The differential diagnosis associated with the presentation includes ( colitis, diverticulitis, acute appendicitis, gastritis, no drooling abnormality, severe anemia.) Admission/Observation Consideration of admission/observation: Escalation of care including admission/observation considered Lab Data MDM Lab Attestation statement: I reviewed the patient's lab results. 08/24/23 Unknown 08/24/23 11:40 Labs: Lab Results 08/24/23 08/24/23 Range/Units 11:40 Unknown WBC 14.7 H (4.8-10.8) X10*3/uL RBC 5.00 (4.60-5.80) X10*6/uL Hgb 14.8 (14.0-18.0) g/dl Hct 43.0 (42.0-52.0) % MCV 86.0 (80.0-98.0) fL MCH 29.6 (27.0-33.0) pg MCHC 34.4 (31.0-36.0) g/dl RDW 13.1 (11.0-16.0) % Plt Count 343 (160-400) X10*3/uL MPV 8.9 L (9.4-12.4) fL Immature Gran % (Auto) 0.3 (0.0-0.4) % Neut % (Auto) 65.3 (45-73) % Lymph % (Auto) 27.6 (20-40) % Howard % (Auto) 6.3 (2-11) % Eos % (Auto) 0.2 (0-4) % Baso % (Auto) 0.3 (0-2) % Lymph # (Auto) 4.1 (1.2-4.9) X10*3/uL Howard # (Auto) 0.9 (0.1-1.2) X10*3/uL Eos # (Auto) 0.0 (0.0-0.4) X10*3/uL Baso # (Auto) 0.1 (0.0-0.2) X10*3/uL Abs Immat Gran (auto) 0.05 H (0.00-0.03) X10*3/uL Absolute Neuts (auto) 9.6 H (2.0-8.3) x10*3/uL Absolute Nucleated RBC 0.000 (0.0-0.012) X10*3/uL Nucleated RBC % (auto) 0.0 (0.0-0.2) /100WBC Sodium 137 (135-145) mmol/L Potassium 3.9 (3.3-5.1) mmol/L Chloride 104 (96-108) mmol/L Carbon Dioxide 23 (22-29) mmol/L Anion Gap 14 (12-20) BUN 19 H (9-16) mg/dL Creatinine 1.23 (0.5-1.4) mg/dL Estim Creat Clear Calc 84.8 Estimated GFR > 60 Random Glucose 118 H (60-115) mg/dL Calcium 10.5 H (8.4-10.2) mg/dL Magnesium 2.3 (1.6-2.6) mg/dL Total Bilirubin 0.6 (0.0-1.0) mg/dL AST 20 (5-37) U/L ALT 20 (0-40) U/L Alkaline Phosphatase 69 (39-117) U/L Total Protein 8.1 H (6.5-8.0) g/dL Albumin 4.8 (3.5-5.0) g/dL Lipase 30 (8-78) U/L Influenza Type A (PCR) NEGATIVE (Negative) Influenza Type B (PCR) NEGATIVE (Negative) RSV RNA Qual (PCR) NEGATIVE (Negative) SARS-CoV-2 RNA (RT-PCR) NEGATIVE (Negative) Independent Interpretation I performed an independent interpretation of an: CT Scan ( Abdomen and pelvis:1. No acute intra-abdominal process seen. 2. Scattered colonic diverticulosis without diverticulitis. Mild constipation. ) Radiology Impression Discussion of test interpretation with radiology: I have reviewed the radiologist's reading. Discharge Plan Discharge Clinical Impression: Abdominal pain Qualifiers: Abdominal location: epigastric Qualified Code(s): R10.13 - Epigastric pain Patient Disposition: Home, Self-Care Instructions: Abdominal Pain (ED) Additional Instructions: recommend to be evaluated by a telegraph repeater technician please discuss with your PCP and get GI referral. Prescriptions: New omeprazole 40 mg capsule,delayed release(DR/EC) 40 mg PO DAILY Qty: 20 0RF No Action cetirizine 10 mg tablet 10 mg PO DAILY PRN (Reason: Allergy Symptoms) sumatriptan succinate 50 mg tablet 50 mg PO DAILY PRN (Reason: Migraine Headache) oxycodone-acetaminophen 5-325 mg tablet 1 tab PO QID PRN (Reason: Pain, Moderate) methocarbamol 750 mg tablet 1 tab PO BID mirtazapine 7.5 mg tablet 1 tab PO BEDTIME Referrals: Bhupendra Thao MD [Primary Care Provider] -
[2023-08-24 13:07] VITALS: BP 140/91; PULSE 75; RESP 16; TEMP 37.1; O2SAT 97
[2023-08-24 13:14] LABS: Influenza A PCR NEGATIVE (Negative); Influenza B PCR NEGATIVE (Negative); Resp Syncy Virus RNA Qual PCR NEGATIVE (Negative); SARS COV2 PCR INHOUSE NEGATIVE (Negative)
== END 2023-08-24 15:22 | disposition home or self-care (01) ==
PROVIDERS: Physician Assistant; Emergency Provider Emergency Medicine; PCP Internal Medicine
DX: R10.13 Epigastric pain (principal); R11.2 Nausea with vomiting, unspecified; R14.0 Abdominal distension (gaseous); Z20.822 Contact with and (suspected) exposure to COVID-19; Z20.828 Contact with and (suspected) exposure to other viral communicable diseases
CPT/HCPCS: 0241U; 36415; 74176; 80053; 83690; 83735; 85025; 99284